=== PATIENT | female | born 1940 | race American Indian/Alaskan Native ===

== ENCOUNTER 2020-07-02 09:08 | Outpatient (CLI) | payer MEDICARE, OTHER ==
--- NOTE | 2020-07-02 11:56 | Ultrasound Report ---
ULTRASOUND THYROID INDICATION / CLINICAL INFORMATION: HYPERCALCEMIA. COMPARISON: None available. FINDINGS: RIGHT LOBE: Size = 4.6 x 1.8 x 1.4 cm. - Echogenicity: Normal. - Vascularity: Normal. - Nodules < 1 cm: None. - Nodules >= 1 cm or Suspicious Nodules: 1.1 cm partially cystic and solid nodule within the right mi d thyroid lobe.. LEFT LOBE: Size = 4.5 x 1.3 x 2.1 cm cm. - Echogenicity: Normal. - Vascularity: Normal. - Nodules < 1 cm: None. - Nodules >= 1 cm or Suspicious Nodules: 1.4 cm nodule with some peripheral calcification. The nodule s mostly hypoechoic and solid in appearance.. ISTHMUS: No significant abnormality. Thickness = 0.6 cm. - Nodules < 1 cm: None. - Nodules >= 1 cm or Suspicious Nodules: 1.4 x 1.4 x 0.7 cm relatively hypoechoic nodule.. LYMPH NODES: No abnormal lymph nodes. PARATHYROID GLANDS: 3.0 x 0.5 x 0.8 cm nodule identified in the expected region of the left parathyro id gland concerning for a parathyroid adenoma. ADDITIONAL FINDINGS: None. IMPRESSION: 1. Focal 3 cm left parathyroid adenoma, as above 2. Focal 1.4 cm hypoechoic solid-appearing nodule within the isthmus region of the thyroid gland, TI- RADS 4. FNA suggested. 3. 1.5 cm lesion within the left lobe of the thyroid gland is also TIRADS 4, FNA suggested. Note: Nodule size based on mean (average) size of 3 dimensions. Note: Nodules < 1 cm do not typically require follow-up or FNA unless there are suspicious features ( BRANDAN, 2015) ACR TI-RADS Thyroid Nodule Recommendations TI-RADS 1 (0 points) -- Benign. No FNA or follow-up. TI-RADS 2 (1-2 points) -- Not suspicious. No FNA or follow-up. TI-RADS 3 (3 points) -- Mildly suspicious. Follow up in 1 year if 1.5 cm. FNA if 2.5 cm. TI-RADS 4 (4-6 points) -- Moderately suspicious. Follow up in 1 year if 1.0 cm. FNA if 1.5 cm. TI-RADS 5 (7+ points) -- Highly suspicious. Follow up in 1 year if 0.5 cm. FNA if 1.0 cm. Signer Name: Neel Grider MD Signed: 07/02/2020 11:51 AM Workstation Name: [id number]
== END 2020-07-02 09:09 | disposition home or self-care (01) ==
LOC: SPVWC 09:08
PROVIDERS: ATTEND Internal Medicine
DX: D35.1 Benign neoplasm of parathyroid gland (principal); E83.52 Hypercalcemia
CPT/HCPCS: 76536

== ENCOUNTER 2020-10-24 09:02 | Outpatient (CLI) | payer MEDICARE, OTHER ==
[2020-10-24 09:52] LABS: Blood Urea Nitrogen 14 mg/dL (7-17); Calcium 10.8 mg/dL (8.4-10.2); Chol/HDL Ratio 2.36 %; HDL Cholesterol 118 mg/dL (40-59); Hemolysis Index 5; LDL Cholesterol,Direct 168 mg/dL (50-130)
[2020-10-24 09:57] LABS: BUN/Creatinine Ratio 20
== END 2020-10-24 09:03 | disposition home or self-care (01) ==
LOC: LAB 09:02
PROVIDERS: ATTEND Internal Medicine
DX: E11.9 Type 2 diabetes mellitus without complications (principal); E78.5 Hyperlipidemia, unspecified; E83.52 Hypercalcemia
CPT/HCPCS: 36415; 80048; 80061; 83036

== ENCOUNTER 2021-03-14 09:07 | Outpatient (CLI) | payer MEDICARE, OTHER ==
[2021-03-14 09:53] LABS: Chol/HDL Ratio 2.08 %
== END 2021-03-14 09:08 | disposition home or self-care (01) ==
LOC: LAB 09:07
PROVIDERS: ATTEND Internal Medicine
DX: E11.9 Type 2 diabetes mellitus without complications (principal); E78.5 Hyperlipidemia, unspecified
CPT/HCPCS: 36415; 80061; 83036

== ENCOUNTER 2021-08-05 09:10 | Outpatient (CLI) | payer MEDICARE, OTHER ==
[2021-08-05 10:01] LABS: Blood Urea Nitrogen 17 mg/dL (7-17); Calcium 9.1 mg/dL (8.4-10.2); Chol/HDL Ratio 2.29 %; HDL Cholesterol 120 mg/dL (40-59); Hemolysis Index 61; LDL Cholesterol,Direct 161 mg/dL (50-130)
[2021-08-05 10:24] LABS: BUN/Creatinine Ratio 28
== END 2021-08-05 09:11 | disposition home or self-care (01) ==
LOC: LAB 09:10
PROVIDERS: ATTEND Internal Medicine
DX: E21.3 Hyperparathyroidism, unspecified (principal); E04.1 Nontoxic single thyroid nodule; E11.9 Type 2 diabetes mellitus without complications; E78.5 Hyperlipidemia, unspecified
CPT/HCPCS: 36415; 80048; 80061; 83036; 83970; 84439; 84443

== ENCOUNTER 2021-12-02 11:47 | Outpatient (CLI) | payer MEDICARE, OTHER ==
--- NOTE | 2021-12-02 13:56 | XRay Report ---
LEFT WRIST 4 VIEWS INDICATION: LEFT WRIST PAIN. COMPARISON: None. IMPRESSION: Osteopenia is evident. No acute osseous abnormality or ligamentous injury is appreciated . No bone lesion. 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 Minimal osteoarthritic changes are id entified. Mild soft tissue swelling. Signer Name: Waqar Carpenter Jr, MD Signed: 12/02/2021 1:51 PM Workstation Name: [id number]
== END 2021-12-02 11:48 | disposition home or self-care (01) ==
LOC: XRAY 11:47
PROVIDERS: ATTEND Internal Medicine
DX: M19.032 Primary osteoarthritis, left wrist (principal); R22.9 Localized swelling, mass and lump, unspecified; M85.88 Other specified disorders of bone density and structure, other site

== ENCOUNTER 2022-05-19 09:39 | Outpatient (CLI) | payer MEDICARE, OTHER ==
[2022-05-19 11:48] LABS: Hematocrit 35.6 % (30.3-42.9); Hemoglobin 12.1 gm/dl (10.1-14.3); Mean Corpuscular HGB Conc 34 % (30-34); Mean Corpuscular Volume 90 fl (79-97); Platelet Count 299 K/mm3 (140-440); Red Blood Count 3.97 M/mm3 (3.65-5.03); Red Cell Distribution Width 13.3 % (13.2-15.2)
[2022-05-19 11:49] LABS: Bilirubin,Urine NEG (Negative); Blood,Urine SM (Negative); Color,Urine Yellow (Yellow); Protein,Urine <15 mg/dL mg/dL (Negative); Urobilinogen,Urine < 2.0 mg/dL (<2.0)
[2022-05-19 11:58] LABS: Bacteria,Urine 2+ /HPF (Negative); Mucus,Urine FEW /HPF
[2022-05-19 12:08] LABS: Alanine Aminotransferase 14 units/L (7-56); Albumin 4.4 g/dL (3.9-5); Blood Urea Nitrogen 12 mg/dL (7-17); Calcium 9.5 mg/dL (8.4-10.2); Chol/HDL Ratio 2.55 %; HDL Cholesterol 118 mg/dL (40-59); Hemolysis Index 45; LDL Cholesterol,Direct 180 mg/dL (50-130)
[2022-05-19 12:30] LABS: BUN/Creatinine Ratio 20
[2022-05-19 13:18] LABS: Creatinine,Urine 58.1 mg/dL (0.1-20.0)
[2022-05-21 16:41] LABS: Vitamin D, 25-OH, D2 <4 ng/mL
== END 2022-05-19 09:40 | disposition home or self-care (01) ==
LOC: LABHHL 09:39
PROVIDERS: ATTEND Internal Medicine
DX: Z00.00 Encounter for general adult medical examination without abnormal findings (principal); E11.9 Type 2 diabetes mellitus without complications; E55.9 Vitamin D deficiency, unspecified; E04.2 Nontoxic multinodular goiter; I10 Essential (primary) hypertension; E78.2 Mixed hyperlipidemia; N39.0 Urinary tract infection, site not specified
CPT/HCPCS: 36415; 80053; 80061; 81001; 82043; 82306; 83036; 84443; 85027; 87086